=== PATIENT | male | born 1995 | race African-American/Black ===

== ENCOUNTER 2017-03-10 10:49 | Emergency (ER) | payer OTHER ==
[~2017-03-10] VITALS: Ht 182.9 cm; Wt 65.8 kg
[2017-03-10] MEDS ORDERED: HYDROcodone/APAP 5/325MG 1 TAB TABLET PO ONE (11:45)
[2017-03-10] MEDS ORDERED: CYCLOBENZAPRINE 10 MG TABLET. PO ONE (11:45)
[2017-03-10] MEDS ORDERED: HYDR-971 PO (14:50)
[2017-03-10] MEDS ORDERED: CYCL10TA2 PO (14:50)
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
[2017-03-10 14:56] VITALS: BP 117/62
--- NOTE | 2017-03-10 15:46 | RAD ---
CT cervical spine without IV contrast Indication:, Neck pain Technique: CT cervical spine without IV contrast with multiplanar reformats. Comparison: None Findings: Cervical spine is in normal anatomic alignment. No compression deformities. Atlantoaxial interval is preserved. No acute fractures. The facet joints are in normal anatomic alignment. Prevertebral soft tissues are within normal limits. No cervical adenopathy. Visualized lung apices are clear. Impression: No acute fractures. PQRS Compliance Statement: One or more of the following individualized dose reduction techniques were utilized for this examination: 1. Automated exposure control 2. Adjustment of the mA and/or kV according to patient size 3. Use of iterative reconstruction technique
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
== END 2017-03-10 14:57 | disposition home or self-care (01) ==
LOC: ER 10:49
DX: S16.1XXA Strain of muscle, fascia and tendon at neck level, initial encounter (principal); M25.511 Pain in right shoulder; V89.2XXA Person injured in unspecified motor-vehicle accident, traffic, initial encounter; Y93.89 Activity, other specified; Y99.8 Other external cause status; Y92.410 Unspecified street and highway as the place of occurrence of the external cause
CPT/HCPCS: 72125; 73030; 99284-25